=== PATIENT | female | born 1995 | race Caucasian/White ===

== ENCOUNTER 2022-12-16 10:44 | Emergency (ER) | payer OTHER ==
[~2022-12-16] VITALS: Ht 157.5 cm; Wt 61.2 kg
--- NOTE | 2022-12-16 10:56 | NUR ---
PT WALKED IN HER ROOM DUE TO PEREZ WHILE DOING SUNBTAHING WITH OUT SUN BLOCK 4DAYS AGO. BLISTERS ARE OSEVED SWELLING AND PAIN 02/22
--- NOTE | 2022-12-16 11:03 | NUR ---
PT OFFERED BLANKET AND PILLOW LYING ON HER TUMMY. MADE HER COMFORTABLE.
--- NOTE | 2022-12-16 11:19 | NUR ---
DR BERGER AT BEDSIDE FOR EVAL.
[2022-12-16] MEDS ORDERED: SILVER SULFADIAZINE 50 GM JAR TP STA (11:34)
[2022-12-16] MEDS ORDERED: IV NS 0.9% 1,000 ML IV ONE (12:00)
[2022-12-16] MEDS ORDERED: ACETAMINOPHEN 325 MG TABLET PO ONE (12:00)
[2022-12-16] MEDS ORDERED: ACETAMINOPHEN 325 MG TABLET ONE (12:06)
[2022-12-16] MEDS ORDERED: SILVER SULFADIAZINE CREAM 25 GM TUBE ONE (12:11)
[2022-12-16 12:27] LABS: CREATININE 0.9 mg/dL (0.6-1.3); POTASSIUM 4.1 mmol/L (3.5-5.1)
[2022-12-16 12:28] LABS: BASOPHILS % (AUTO) 0.2 % (0.0-2.0); EOSINOPHILS % (AUTO) 0.3 % (0.0-6.0); HEMATOCRIT 41 % (33-45); HEMOGLOBIN 13.3 g/dL (11.5-14.8); LYMPHOCYTES # (AUTO) 1.2 K/uL (0.8-4.8); LYMPHOCYTES % (AUTO) 13.8 % (20.0-44.0); MEAN CORPUSCULAR HGB CONC 33 g/dl (31.0-36.0); MEAN CORPUSCULAR VOLUME 94 fL (82-100); MONOCYTES # (AUTO) 0.5 K/uL (0.1-1.30); MONOCYTES % (AUTO) 5.8 % (2.0-12.0); NEUTROPHILS # (AUTO) 6.7 K/uL (1.8-8.9); NEUTROPHILS % (AUTO) 79.9 % (43.0-81.0); PLATELET COUNT (AUTO) 235 K/uL (150-450); RED BLOOD CELL COUNT(AUTO) 4.31 MIL/uL (4.0-5.2); WHITE BLOOD COUNT (AUTO) 8.4 K/uL (4.3-11.0)
[2022-12-16] MEDS ORDERED: CEPH500C2 PO (12:40)
[2022-12-16] MEDS ORDERED: SILV20CR13 TP (12:40)
--- NOTE | 2022-12-16 12:51 | NUR ---
PT SIGNED THE DISCHARGE PAPER. READ AND EXPLAINED THE PAPERS
[2022-12-16 13:09] VITALS: BP 125/72
== END 2022-12-16 13:05 | disposition home or self-care (01) ==
LOC: ER 11:06
DX: L55.1 Sunburn of second degree (principal); I10 Essential (primary) hypertension; J45.909 Unspecified asthma, uncomplicated; Z88.8 Allergy status to other drugs, medicaments and biological substances; Z79.899 Other long term (current) drug therapy
CPT/HCPCS: 99283; 96360; 85025; 80048; 82550; 36415; J7030